=== PATIENT | male | born 1945 | race Caucasian/White ===

== ENCOUNTER 2021-10-28 09:39 | Emergency (ER) | payer MEDICARE, BC ==
[~2021-10-28] VITALS: Ht 165.1 cm; Wt 96.0 kg
[2021-10-28 10:42] LABS: HEMATOCRIT 40.8 % (39.0-50.0); HEMOGLOBIN 13.9 g/dl (14.0-18.0); IMMATURE GRANULOCYTES 0.4 % (0.0-5.0); MEAN CELL VOLUME 93.2 fL CALC (80.0-100.0); MEAN CORPUSCULAR HGB 31.7 pG CALC (26.0-32.0); MEAN CORPUSCULAR HGB CONC 34.1 g/dL CAL (32.0-36.0); NEUT# 8.12 thou/uL (1.82-7.42); RED BLOOD COUNT 4.38 mill/uL (4.70-6.10); RED CELL DISTRI WIDTH 12.6 % (11.5-15.5)
[2021-10-28 10:50] LABS: ALBUMIN 4.3 g/dL (3.2-5.0); ALKALINE PHOSPHATASE 48 u/l (38-126); ANION GAP 14 (6-22 (CALC)); BILIRUBIN, TOTAL 1.1 mg/dL (0.0-1.4); BUN 17 mg/dL (8-23); BUN/CREATININE RATIO 20 (12-20 (CALC)); CARBON DIOXIDE 24 mmol/l (22-30); CHLORIDE 104 mmol/l (95-108); CREATININE 0.9 mg/dL (0.7-1.3); GFR > 60 ML/MIN (>=60 (CALC)); GFR FOR AFR.AMER. > 60 ML/MIN (>=60 (CALC)); POTASSIUM 4.1 mmol/l (3.5-5.1); SGOT/AST 37 u/l (19-48); SODIUM 137 mmol/l (137-146); TOTAL PROTEIN 8.2 g/dL (6.3-8.2)
[2021-10-28 11:00] LABS: ACT PARTIAL THROMBO TIME 19.3 SECONDS (20.0-32.5); PROTHROMBIN TIME 10.4 SECONDS (9.0-12.5)
[2021-10-28 11:15] LABS: URINE BILIRUBIN - DIPSTICK NEGATIVE (NEGATIVE); URINE BLOOD DIPSTICK LARGE (NEGATIVE); URINE COLOR YELLOW; URINE GLUCOSE - DIPSTICK NEGATIVE (NEGATIVE); URINE KETONE NEGATIVE (NEGATIVE); URINE LEUK ESTERASE NEGATIVE (NEGATIVE); URINE PH 6.5 (4.5-8.0); URINE PROTEIN - DIPSTICK TRACE mg/dL (NEG-TRACE); URINE SPECIFIC GRAVITY 1.025; URINE UROBILINOGEN - DIPSTICK 0.2 E.U./dL (0.2)
[2021-10-28 11:17] LABS: URINE NITRITE - DIPSTICK NEGATIVE (Negative)
[2021-10-28 11:25] LABS: URINE WBC 0-2 WBC/hpf (0-5)
[2021-10-28] MEDS ORDERED: TAMSULOSIN0.4 MG PO (11:39)
[2021-10-28] MEDS ORDERED: HYDROCO/APAP1 TA9 PO (11:39)
[2021-10-28] MEDS ORDERED: ZOFRAN4 MG/TAB PO (11:39)
[2021-10-28 12:30] VITALS: BP 170/84
== END 2021-10-28 12:30 | disposition home or self-care (01) ==
LOC: ED 09:39
DX: N13.2 Hydronephrosis with renal and ureteral calculous obstruction (principal); I10 Essential (primary) hypertension; E11.9 Type 2 diabetes mellitus without complications; E78.00 Pure hypercholesterolemia, unspecified; Z95.5 Presence of coronary angioplasty implant and graft; Z87.442 Personal history of urinary calculi

== ENCOUNTER 2024-07-28 09:23 | Emergency (ER) | payer MEDICARE, BC ==
[~2024-07-28] VITALS: Ht 165.1 cm; Wt 95.0 kg
[~2024-07-28 09:23] MED LIST: AMLODIPINE BESY10 MG PO; ASPIRIN 81 LOW81 MG PO; AVAPRO PO; CARVEDILOL12.5 MG PO; COQ-10100 M1 PO; EZALLOR SPRINKL40 MG PO; HYDROCHLOROT12.5 MG PO; HYDROCO/APAP1 TA9 PO; METFORMIN500 M2 PO; NITROSTAT0.3 MG SL; TAMSULOSIN0.4 MG PO; TYLENOL500 MG PO; ZETIA10 MG PO; ZOFRAN4 MG/TAB PO
[2024-07-28 09:31] VITALS: BP 156/76
[2024-07-28] MEDS ORDERED: KETOROLAC TROMETHAMINE 30 MG/ML SDV IV ONE ×2 (10:05→10:10)
[2024-07-28 10:27] LABS: URINE BILIRUBIN - DIPSTICK Negative (NEGATIVE); URINE BLOOD DIPSTICK Negative (NEGATIVE); URINE GLUCOSE - DIPSTICK Negative (NEGATIVE); URINE KETONE Negative (NEGATIVE); URINE LEUK ESTERASE Negative (NEGATIVE); URINE NITRITE - DIPSTICK Negative (Negative); URINE PH 6.5 (4.5-8.0); URINE PROTEIN - DIPSTICK Negative (NEG-TRACE); URINE UROBILINOGEN - DIPSTICK 0.2 E.U./dL (0.2)
[2024-07-28 10:32] LABS: URINE COLOR Yellow
[2024-07-28 10:41] LABS: ALBUMIN 4.2 g/dL (3.2-5.0); CREATININE 0.8 mg/dL (0.7-1.3); POTASSIUM 3.9 mmol/l (3.5-5.1); TOTAL PROTEIN 7.3 g/dL (6.3-8.2)
[2024-07-28 10:57] LABS: BASO% 0.7 % (0-3); HEMOGLOBIN 14.4 g/dl (14.0-18.0); IMMATURE GRANULOCYTES 0.1 % (0.0-5.0); LYMPH% 29.9 % (15-41); MEAN CELL VOLUME 98.4 fL CALC (80.0-100.0); MEAN CORPUSCULAR HGB 33.7 pG CALC (26.0-32.0); MEAN CORPUSCULAR HGB CONC 34.3 g/dL CAL (32.0-36.0); MONO% 5.1 % (2-13); NEUT# 4.01 thou/uL (1.82-7.42); NEUT% 58.2 % (42-76); RED BLOOD COUNT 4.27 mill/uL (4.70-6.10); RED CELL DISTRI WIDTH 11.9 % (11.5-15.5)
[2024-07-28] MEDS ORDERED: ISOVUE-300 (Iopamidol) 100 ML SDV IV ONE (11:10)
[2024-07-28] MEDS ORDERED: Barium Sulfate (Readi-Cat 2 Berry) 450 ML/BTL PO ONE (11:10)
[2024-07-28 12:31] VITALS: BP 164/79
[2024-07-28 12:41] VITALS: BP 157/68
[2024-07-28 13:01] VITALS: BP 149/75
[2024-07-28] MEDS ORDERED: DULCOLAX5 MG PO (13:14)
[2024-07-28] MEDS ORDERED: FLEXERIL5 M1 PO (13:14)
[2024-07-28 13:21] VITALS: BP 158/74
[2024-07-28 13:31] VITALS: BP 158/74
== END 2024-07-28 13:30 | disposition home or self-care (01) ==
LOC: ED 09:23
PROVIDERS: Family Medicine
DX: K59.00 Constipation, unspecified (principal); M79.604 Pain in right leg; K76.9 Liver disease, unspecified; N28.9 Disorder of kidney and ureter, unspecified; E11.9 Type 2 diabetes mellitus without complications; N20.0 Calculus of kidney; I25.10 Atherosclerotic heart disease of native coronary artery without angina pectoris; E78.5 Hyperlipidemia, unspecified; Z95.5 Presence of coronary angioplasty implant and graft; Z87.442 Personal history of urinary calculi; Z79.84 Long term (current) use of oral hypoglycemic drugs